=== PATIENT | male | born 1985 | race Two or more races ===

== ENCOUNTER 2022-03-26 19:36 | Emergency (ER) | payer OTHER ==
[~2022-03-26] VITALS: Ht 167.6 cm; Wt 61.4 kg
[2022-03-26] MEDS ORDERED: IBUPROFEN 600 MG TABLET PO ONE (23:45)
[2022-03-27] MEDS ORDERED: IBUP-2070 PO (01:57)
[2022-03-27 02:20] VITALS: BP 118/66
== END 2022-03-27 02:30 | disposition home or self-care (01) ==
LOC: EMS 19:36
DX: S02.831A Fracture of medial orbital wall, right side, initial encounter for closed fracture (principal); S16.1XXA Strain of muscle, fascia and tendon at neck level, initial encounter; S46.912A Strain of unspecified muscle, fascia and tendon at shoulder and upper arm level, left arm, initial encounter; S09.90XA Unspecified injury of head, initial encounter; Y04.0XXA Assault by unarmed brawl or fight, initial encounter; Y93.89 Activity, other specified; Y92.89 Other specified places as the place of occurrence of the external cause; Y99.8 Other external cause status
CPT/HCPCS: 70450; 70486; 72125; 99284